=== PATIENT | female | born 1995 | race Caucasian/White ===

== ENCOUNTER → 2022-01-19 11:23 | Outpatient (CLI) | payer MEDICAID, SELFPAY ==
--- NOTE | 2022-01-19 11:23 | US_ITS ---
FINAL REPORT CLINICAL HISTORY: sga chronic hypertension FINDINGS: TRANSABDOMINAL ULTRASOUND There is a single live intrauterine gestation. Presentation is cephalic. The cervix is closed and measures 3.6 cm. Placenta is posterior, grade 2. Cardiac activity is confirmed at 133 bpm. Fetus is active. [place]: 11 cm which is low normal. MEASUREMENTS: ULTRASOUND AGE: 34 weeks 0 days. GESTATION AGE: 35 weeks 2 days. ESTIMATED WEIGHT: 2280 g GROWTH PERCENTILE: 13% LMP percentile BPD: 8.5 cm corresponding with 34 weeks 2 days. OFD: 10.9 cm corresponding with 34 weeks 6 days. HC: 30.6 cm corresponding with 34 weeks 1 days. AC: 30.1 cm corresponding to 34 weeks 1 days. FL: 6.4 cm corresponding with 33 weeks 1 days. HC/AC: 1.02 CI: 78% FL/BPD: 76% FL/AC: 21% BREATHIN/2 MOVEMENT: 2/2 TONE: 2/2 FLUID VOLUME: 2/2 BPP SCORE: 8/8 IMPRESSION: Single living IUP with an ultrasound age of 34 weeks 0 days. BPP SCORE: 8/8 [place] 11 cm, low normal. Reviewed, Interpreted and Dictated by Cyrus Brizuela III, MD Transcribed by Mary Anne Gilbert Authenticated and [facility]
== END ==
PROVIDERS: PCP Obstetrics & Gynecology; Visit Provider Obstetrics & Gynecology
DX: O36.5990 Maternal care for other known or suspected poor fetal growth, unspecified trimester, not applicable or unspecified (principal); I10 Essential (primary) hypertension
CPT/HCPCS: 76816; 76819

== ENCOUNTER 2022-01-24 11:53 | Inpatient (IN) | payer MEDICAID, SELFPAY ==
[2022-01-24] VITALS (32 sets, daily range): BP systolic 94–161; BP diastolic 50–100; PULSE 64–104; RESP 18; TEMP 36.7–36.8; O2SAT 97–100; BMI 34.9
[2022-01-24 11:18] LABS: Microscopic, Urine URINE MICROSCOPIC (MICROSCOPIC)
[2022-01-24 11:19] LABS: Basophils # 0.1 K/mm3 (0-0.2); Basophils % 0.4 % (0.1-2.0); Eosinophils # 0.1 K/mm3 (0.0-0.4); Eosinophils % 1.1 % (0.1-12.0); Hematocrit 33.4 % (37.0-47.0); Hemoglobin 11.2 g/dL (12.2-16.2); Lymphocytes # 1.9 K/mm3 (0.7-4.5); Lymphocytes % 16.2 % (10-50); Mean Corpuscular HGB Conc 33.5 g/dL (31.8-35.4); Mean Corpuscular Hemoglobin 28.9 pg (27.0-31.2); Mean Corpuscular Volume 86.3 fl (81-99); Mean Platelet Volume 9.4 fl (7.4-10.4); Monocytes # 0.6 K/mm3 (0.1-1.0); Monocytes % 4.8 % (1.7-9.3); Neutrophils # 9.1 K/mm3 (1.8-7.8); Neutrophils % 77.4 % (37.0-80.0); Platelet Count 256 K/mm3 (142-424); Red Blood Count 3.88 M/mm3 (4.20-5.40); Red Cell Distribution Width 13.4 % (11.5-17.5); White Blood Count 11.8 K/mm3 (4.8-10.8)
[2022-01-24 11:25] LABS: Appearance,Urine CLEAR (Clear); Bilirubin,Urine Negative (Negative); Blood, Urine Negative (Negative); Color,Urine YELLOW (Yellow); Glucose,Urine (UA) Negative (Negative); Ketones,Urine Negative (Negative); Leukocyte Esterase,Urine Negative (Negative); Nitrate,Urine Negative (Negative); PH,Urine 6.5 (5.0-8.5); Protein,Urine Negative (Negative); Urobilinogen,Urine 0.2 EU/dl (0.2)
[2022-01-24 11:33] LABS: Alanine Aminotransferase 18 U/L (12-78); Albumin/Globulin Ratio 1.3 (1.1-1.8); Alkaline Phosphatase 185 U/L (38-126); Anion Gap 8.8 mEq/L (5-15); Aspartate Amino Transferase 30 U/L (14-36); Bilirubin,Total 0.7 mg/dl (0.2-1.3); Blood Urea Nitrogen 5 mg/dl (7-17); Calcium 9.7 mg/dl (8.4-10.2); Carbon Dioxide 23 mmol/L (22.0-30.0); Chloride 103 mmol/L (98-107); Creatinine Clearance Estimated 236 mL/min (50-200); Estimated Glomerular Filt Rate 147 ml/min (>60); GFR (African American) 178 ML/MIN (>60); Glucose 85 mg/dl (74-100); Potassium 3.8 mmoL/L (3.5-5.1); Sodium 131 mmol/L (136-145); Uric Acid 3.5 mg/dl (2.5-6.2)
[2022-01-24 11:35] LABS: Amphetamine/Metha Screen,Urine Negative ng/ml (<1000)
[2022-01-24 11:36] LABS: Barbiturates Screen,Urine Negative ng/ml (<200)
[2022-01-24 11:37] LABS: Benzodiazepines Screen,Urine Negative ng/ml (<200); Cannabinoid Screen,Urine Negative ng/ml (<50); Squamous Epithelial Cell,Urine Occasional #/hpf (0-5)
[2022-01-24 11:38] LABS: Cocaine Screen,Urine Negative ng/ml (<300)
[2022-01-24 11:38] LABS: D-Dimer 0.99 ug/mL (0.0-0.5)
[2022-01-24 11:39] LABS: Methadone Screen,Urine Negative ng/ml (<300); Opiate Screen,Urine Negative ng/ml (<300)
[2022-01-24 11:40] LABS: Phencyclidine Screen,Urine Negative ng/ml (<25)
[2022-01-24 11:51] LABS: Activated Partial Thrombo Time 23.6 seconds (22.8-30.6); Fibrinogen 450 mg/dL (229.9-363.5); Prothrombin Time 9.8 seconds (10.1-12.5)
--- NOTE | 2022-01-24 11:56 | HMH.PHAINT1 ---
Pharmacy Intervention Comments: MEDICATION RECONCILIATION COMPLETED ON PATIENT USING EXTERNAL FILL HISTORY FROM PHARMACY. -EMELY MELGOZA, ERVIND
[2022-01-24 13:28] LABS: Coronavirus 19, PCR Not Detected (NotDetected); Influenza A, PCR Not Detected (NotDetected); Influenza B, PCR Not Detected (NotDetected)
--- NOTE | 2022-01-24 14:56 | EXP.HP ---
History of Present Illness *Admission Date: 01/24/22 *Reason for visit:: hypertension *History of present illness: 26 yo @ 36 0/7 care primarily in [place] with recent transfer of care to [facility] complicated by chronic hypertension and growth restriction Current medical management with labetalol 100mg TID but BP elevated today in office and she reports elevated BP over the weekend Sent to OB triage for further evaluation [facility] labs negative but BP remained elevated and she was advised to proceed with delivery given already compromised growth prior to loss of control of hypertension NST was reactive in office today and reassuring in triage [facility] Medical History Chronic hypertension affecting Surgical History History of laparoscopic appendectomy Family History (Updated 01/24/22 @ 11:24 by Da Lewis RN) No significant family history Social History (Updated 01/24/22 @ 11:25 by Da Lewis RN) Smoking Status: Never smoker alcohol intake: never current occupational status: employed Travel in the last 8 weeks: None Review of Systems Constitutional Constitutional: Reports system reviewed and no additional complaints, except as documented and Denies headache(s) ENT Ears, Nose, Mouth, and Throat: Denies headache(s) *Genitourinary Genitourinary: Denies abnormal vaginal bleeding *Neurologic Neurologic: Denies headache(s) and Denies other visual disturbances Meds Home Medications and Allergies Home Medications Medication Instructions Recorded Confirmed Type labetalol 100 mg tablet 100 mg PO TID Hypertension 01/17/22 01/24/22 History aspirin 81 mg tablet,delayed 81 mg PO DAILY HEART HEALTH 01/21/22 01/24/22 History release vits no.130-ferrous fum 1 tab PO DAILY Supplement 01/21/22 01/24/22 History 27 mg iron-folic acid 800 mcg tablet ( Vitamin) New Prescriptions to Start Prescriptions: Allergies Allergy/AdvReac Type Severity Reaction Status Date / Time No Known Allergies Allergy Verified 01/24/22 12:48 Exam Data for Last 24 hours Vital signs and Labs for Last 24 Hours: Temp Pulse Resp BP Pulse Ox 98.0 F 94 H 18 99/51 L 100 01/24/22 10:35 01/24/22 14:50 01/24/22 12:15 01/24/22 14:50 01/24/22 11:19 Laboratory Results - last 24 hr 01/24/22 10:30: Urine Color Yellow, Urine Appearance Clear, Urine pH 6.5, Ur Specific [place] 1.010, Urine Protein Negative, Urine Glucose (UA) Negative, Urine Ketones Negative, Urine Blood Negative, Urine Nitrate Negative, Urine Bilirubin Negative, Urine Urobilinogen 0.2, Ur Leukocyte Esterase Negative, Urine RBC None, Urine WBC None, Ur Squamous Epith Cells Occasional, Urine Bacteria None 01/24/22 10:30: Urine Opiates Screen Negative, Urine Methadone Screen Negative, Ur Barbituates Screen Negative, Ur Phencyclidine Scrn Negative, Ur Amphetamines Screen Negative, U Benzodiazepines Scrn Negative, Urine Cocaine Screen Negative, U Marijuana (THC) Screen Negative 01/24/22 11:05: WBC 11.8 H, RBC 3.88 L, Hgb 11.2 L, Hct 33.4 L, MCV 86.3, MCH 28.9, MCHC 33.5, RDW 13.4, Plt Count 256, MPV 9.4, Neut % (Auto) 77.4, Lymph % (Auto) 16.2, Todd % (Auto) 4.8, Eos % (Auto) 1.1, Baso % (Auto) 0.4, Neut # (Auto) 9.1 H, Lymph # (Auto) 1.9, Todd # (Auto) 0.6, Eos # (Auto) 0.1, Baso # (Auto) 0.1 01/24/22 11:05: PT 9.8 L, INR 0.90, APTT 23.6, Fibrinogen 450 H 01/24/22 11:05: D-Dimer 0.99 H, Sodium 131 L, Potassium 3.8, Chloride 103, Carbon Dioxide 23, Anion Gap 8.8, BUN 5 L, Creatinine 0.50 L, Estimated Creat Clear 236, Estimated GFR 147, Est GFR ( Amer) 178, Glucose 85, Uric Acid 3.5, Calcium 9.7, Total Bilirubin 0.7, AST 30, ALT 18, Alkaline Phosphatase 185 H, Total Protein 7.0, Albumin 4.0, Globulin 3.0, Albumin/Globulin Ratio 1.3 01/24/22 12:05: Blood Type O Positive, Antibody Screen Positi
[2022-01-25] VITALS (14 sets, daily range): BP systolic 122–153; BP diastolic 69–93; PULSE 64–77; RESP 18; TEMP 36.5; O2SAT 99
--- NOTE | 2022-01-25 10:38 | P.PN_ITS ---
[facility] Medical History Chronic hypertension affecting Surgical History History of laparoscopic appendectomy Family History (Updated 01/24/22 @ 11:24 by Da Lewis, RN) Other No significant family history Social History (Updated 01/24/22 @ 11:25 by Da Lewis RN) Smoking Status: Never smoker alcohol intake: never substance use type: denies use current occupational status: employed Travel in the last 8 weeks: None [facility] Anesthesia Checklist Patient Identification Patient Identification: Arm Band Structural Data Admitted From: Inpatient Planned Operative Procedure/s: Labor Epidural Consent for Planned Operative Procedure(s) Verified: Yes Verified Documents: Surgical Consent and History and Physical NPO Status Verified Time NPO: 00:00 Additional verifications Anesthesia Reactions: No Airway Assessment C-Spine Mobility Assessed: Yes TMJ Mobility Assessed: Yes Dentition: Good Dentition Neurological Assessment Level of Consciousness: Awake and Alert Anesthesia Plan Anesthesia Risk discussed: Yes Anesthesia Plan: Verified ASA Class: II Anesthesia Type: Epidural
[2022-01-25 12:11] LABS: Microscopic, Urine URINE MICROSCOPIC (MICROSCOPIC)
[2022-01-25 12:16] LABS: Appearance,Urine CLEAR (Clear); Bilirubin,Urine Negative (Negative); Blood, Urine TRACE-I (Negative); Color,Urine YELLOW (Yellow); Glucose,Urine (UA) Negative (Negative); Ketones,Urine Negative (Negative); Leukocyte Esterase,Urine Negative (Negative); Nitrate,Urine Negative (Negative); Protein,Urine Negative (Negative); Specific Gravity, Urine 1.015 (1.005-1.030); Urobilinogen,Urine 0.2 EU/dl (0.2)
[2022-01-25 12:28] LABS: Bacteria,Urine Trace /lpf; RBC,Urine Occasional #/hpf (0-3)
--- NOTE | 2022-01-25 16:52 | EXP.DN ---
Delivery Note Delivery Date:: 01/25/22 Delivery Time:: 16:04 Anesthesia Type: Epidural Was labor medically induced?: Yes Induction method: per pitocin protocol Gestational age (weeks): 36 delivered prior to 39 weeks?: Yes Justification for early elective delivery:: Benign Hypertension and IUGR Gender: Female at 1 minute: 7 at 5 minutes: 8 Delivery Procedure:: Spontaneous vaginal delivery of live born female infant over intact perineum. Delivery uncomplicated Nuchal cord x 1 reduced on perineum No shoulder dystocia with delivery taken to warmer immediately after delivery, with standard nursing assessment performed Apgars: 7 & 8 Placenta spontaneously expressed and examined; noted to be complete/intact. Vulva, vagina, and cervix inspected; small abrasion identified between urethra and clitoris, but hemostatic without needing repair EBL: 300 cc All sponge/needle/instrument counts correct at conclusion of procedure Placental Delivery Description: Spontaneous
[2022-01-26 00:20] VITALS: BP 122/76; PULSE 71; RESP 18; TEMP 36.4
[2022-01-26 05:00] VITALS: BP 132/79; PULSE 65; RESP 18; TEMP 36.5
[2022-01-26 06:25] LABS: Hematocrit 27.2 % (37.0-47.0); Hemoglobin 8.9 g/dL (12.2-16.2)
[2022-01-26 08:08] VITALS: BP 131/84; PULSE 69; RESP 17; TEMP 36.8; O2SAT 99
--- NOTE | 2022-01-26 11:25 | EXP.ACUTE.PN ---
Subjective *Date: 01/26/22 *Time: 11:25 Interval history: She is doing very well. Her blood pressure is stable on labetalol 200 mg 3 times daily. Her lochia is normal. Medical Exam Vital signs and Labs for Last 24 Hours: Vital Signs Temp Pulse Resp BP Pulse Ox 01/26/22 08:08 98.3 F 69 17 131/84 99 01/26/22 05:00 97.7 F 65 18 132/79 01/26/22 00:20 97.5 F L 71 18 122/76 01/25/22 20:47 97.7 F 68 18 148/80 H 99 01/25/22 12:00 134/75 Laboratory Results - last 24 hr 01/25/22 11:21: Urine Color Yellow, Urine Appearance Clear, Urine pH 7.0, Ur Specific [place] 1.015, Urine Protein Negative, Urine Glucose (UA) Negative, Urine Ketones Negative, Urine Blood Trace-i, Urine Nitrate Negative, Urine Bilirubin Negative, Urine Urobilinogen 0.2, Ur Leukocyte Esterase Negative, Urine RBC Occasional, Urine WBC 3-5, Ur Squamous Epith Cells 3-5, Urine Bacteria Trace 01/26/22 06:17: Hgb 8.9 L, Hct 27.2 L I & O for Labs for Last 24 Hours: Intake & Output 01/23/22 01/24/22 01/25/22 01/26/22 11:59 11:59 11:59 11:59 Weight 197 lb Head: Present atraumatic and normocephalic ENT: Present normal exam Neck: Present normal inspection Respiratory: Present normal respiratory effort Assessment and Plan *Assessment and plan (1) Normal spontaneous vaginal delivery: Status: Acute Category: Medical Code(s): O80 - Encounter for full-term uncomplicated delivery (2) Chronic hypertension affecting : Status: Acute Category: Medical Code(s): O10.919 - Unspecified pre-existing hypertension complicating , unspecified trimester Plan She is doing very well. Her blood pressure is stable. We will plan to keep her until at least tomorrow.
[2022-01-26 12:24] VITALS: BP 134/85
--- NOTE | 2022-01-26 16:09 | EXP.DC.SUM ---
General Admission date:: 01/24/22 Discharge date: 01/26/22 HPI HPI HPI: 26 yo @ 36 0/7 care primarily in [place] with recent transfer of care to [facility] complicated by chronic hypertension and growth restriction Current medical management with labetalol 100mg TID but BP elevated today in office and she reports elevated BP over the weekend Sent to OB triage for further evaluation [facility] labs negative but BP remained elevated and she was advised to proceed with delivery given already compromised growth prior to loss of control of hypertension NST was reactive in office today and reassuring in triage Hospital Course Hospital Course Hospital Course: She was started on IV oxytocin and progressed to full dilation. She delivered spontaneously a liveborn female child at 4:04 PM in the afternoon of January 25, 2022. The baby had Apgars of 7 at 1 minute and 8 at 5 minutes. The baby weighed 5 pounds 9 ounces. She is otherwise done well and has remained afebrile throughout her hospitalization. She was started on labetalol 200 mg 3 times daily and this seems to have settled her blood pressure. The blood pressures are in the 130s over 80s range. She will be discharged home to follow-up with Dr. Seals in approximately 48 hours time. She will continue with her labetalol 200 mg 3 times daily. She will continue with her vitamins and iron. She was given the usual instructions with respect to limiting her activity, driving and sexual activity. Her condition on discharge is stable and improved. She is being discharged a day early because her baby is being transferred for breathing difficulties. Exam Data for Last 24 hours Vital signs and Labs for Last 24 Hours: Temp Pulse Resp BP Pulse Ox 98.3 F 69 17 134/85 99 01/26/22 08:08 01/26/22 08:08 01/26/22 08:08 01/26/22 12:24 01/26/22 08:08 Laboratory Results - last 24 hr 01/26/22 06:17: Hgb 8.9 L, Hct 27.2 L I & O for Last 24 hours: Intake & Output 01/24/22 01/25/22 01/26/22 01/27/22 11:59 11:59 11:59 11:59 Weight 197 lb Constitutional Constitutional: no acute distress *Routine HEENT Exam Head: Present normocephalic *Routine Respiratory Exam Respiratory: Present normal respiratory effort Results Data Completed and Pending Labs on day of discharge: Labs from last 24 hours 01/26/22 06:17 Hgb 8.9 L Hct 27.2 L DS: Diagnosis Discharge Diagnosis (1) Normal spontaneous vaginal delivery: Status: Acute (2) Chronic hypertension affecting : Status: Acute Meds Home Medications and Allergies Home Medications Medication Instructions Recorded Confirmed Type labetalol 100 mg tablet 100 mg PO TID Hypertension 01/17/22 01/24/22 History aspirin 81 mg tablet,delayed 81 mg PO DAILY HEART HEALTH 01/21/22 01/24/22 History release vits no.130-ferrous fum 1 tab PO DAILY Supplement 01/21/22 01/24/22 History 27 mg iron-folic acid 800 mcg tablet ( Vitamin) labetalol 100 mg tablet 200 mg PO TID #90 tabs 01/26/22 Rx labetalol 200 mg tablet 200 mg PO TID #90 tabs 01/26/22 Rx New Prescriptions to Start Prescriptions: baljinderetalJoshua Mortensen labetalol Joshua Kramer Allergies Allergy/AdvReac Type Severity Reaction Status Date / Time No Known Allergies Allergy Verified 01/24/22 12:48 Discharge Plan Disposition Patient Disposition: Home, Self-Care Discharge Order Discharge Orders: Discharge Order (Routine); Ordered 01/26/22 Ordered By: Joshua Kramer Follow up Plan Follow up with: Radha Seals MD [Staff Physician] - 01/28/22 11:30 am Prescriptions/Medication Reconciliation: New labetalol 100 mg Tablet 200 mg PO TID Qty: 90 0RF labetalol 200 mg tablet 200 mg PO TID Qty: 90 1RF Continued labetalol 100 mg tablet 100 mg PO TID Vitamin 27 m
== END 2022-01-26 17:15 | disposition home or self-care (01) | DRG 806 ==
LOC: OBOUT 11:54 → OB 11:54
PROVIDERS: Admitting Provider Obstetrics & Gynecology; PCP Nurse Practitioner Family; Visit Provider Obstetrics & Gynecology
DX: O36.5930 Maternal care for other known or suspected poor fetal growth, third trimester, not applicable or unspecified (principal); O10.02 Pre-existing essential hypertension complicating childbirth; Z37.0 Single live birth; Z3A.36 36 weeks gestation of pregnancy
CPT/HCPCS: 59409; 36415; 59025; 80048; 80053; 80305; 81001; 84450; 84460; 84550; 85014; 85018; 85025; 85378; 85384; 85610; 85730; 86850; 86870; C1758; C9803; J0290; U0003; U0005

== ENCOUNTER → 2022-01-24 17:08 | Outpatient (CLI) | payer MEDICAID, SELFPAY | PROVIDERS: Visit Provider Obstetrics & Gynecology | DX: Z34.90 Encounter for supervision of normal pregnancy, unspecified, unspecified trimester (principal) | CPT/HCPCS: 86403 ==

== ENCOUNTER → 2022-11-17 12:00 | Outpatient (CLI) | payer MEDICAID, SELFPAY | PROVIDERS: PCP Nurse Practitioner Obstetrics & Gynecology; Visit Provider Nurse Practitioner Obstetrics & Gynecology | DX: Z34.92 Encounter for supervision of normal pregnancy, unspecified, second trimester (principal); Z3A.17 17 weeks gestation of pregnancy | CPT/HCPCS: 87086 ==

== ENCOUNTER → 2022-12-01 13:12 | Outpatient (CLI) | payer MEDICAID, SELFPAY ==
--- NOTE | 2022-12-01 13:49 | US_ITS ---
PROCEDURE: US OB /MATERNAL DETAIL CLINICAL INDICATION: 20 week anatomy scan COMPARISON: No ultrasounds are available for comparison. FINDINGS: Transabdominal sonographic images of the uterus were obtained. From her established due date she is 19 weeks 4 days. Single viable intrauterine gestation. Breech position. Change to cephalic by end of exam. Placenta: Anteriorplacenta grade 1. There is an average amount fluid. The cervix appears satisfactory. Closed and measuring 3.5 cm in length. Complete survey performed and was unremarkable on the submitted images as in PACS. No discrete anomalies identified on survey imaging by technologist. Active fetus. Three-vessel cord with satisfactory umbilical cord insertion. 4- chamber heart noted. Situs, aortic arch, RVOT, LVOT appear normal. Survey of brain & ventricles Unremarkable. Thalamus, cerebellum, cisterna magna, choroid plexus appear normal. Face and neck survey unremarkable. Profile, nasion, lips and nose appeared normal. Diaphragm and chest views unremarkable. Abdomen: Both kidneys noted and unremarkable. Stomach and bladder noted and satisfactory. Spine: Survey of the spine satisfactory with no anomalies identified nor imaged. Both arms and legs noted. Amniotic Fluid: Adequate. Measurements: Average ultrasound age 19weeks 5days. Estimated due date by ultrasound age 0204/22/2023. Estimated weight 311g BPD = 19weeks 6days OFD = 20weeks 3days HC = 19weeks 3days AC = 20weeks 2days FL = 19weeks 2days Growth Percentile= 55 Heart Rate = 143bpm Cerebellum = 19weeks 5days Humerus = 19weeks 4days HC/AC is 1.12 CI is 0.76 FL/BPD is 0.66 FL/AC is 0.2 IMPRESSION: 1. Viable fetus in a variable presentation. Placenta is anterior grade 1. 2. Anatomical scan appears normal. 3. Size and dates are congruent. Dictated by: Joshua Kramer MD 12/03/2022 08:30 Joshua Kramer MD in [place] 12/03/2022 08:30
== END ==
PROVIDERS: Visit Provider Nurse Practitioner Obstetrics & Gynecology
DX: Z34.92 Encounter for supervision of normal pregnancy, unspecified, second trimester (principal); Z3A.20 20 weeks gestation of pregnancy
CPT/HCPCS: 76811

== ENCOUNTER → 2023-02-06 12:02 | Outpatient (CLI) | payer MEDICAID, SELFPAY ==
[2023-02-06 12:50] LABS: Glucose,Fasting 98 mg/dl (74-100)
[2023-02-06 14:17] LABS: Glucose 1 Hour 135 mg/dL (74-100)
== END ==
PROVIDERS: Visit Provider Nurse Practitioner Obstetrics & Gynecology
DX: Z34.93 Encounter for supervision of normal pregnancy, unspecified, third trimester (principal); Z3A.29 29 weeks gestation of pregnancy
CPT/HCPCS: 82951

== ENCOUNTER → 2023-02-15 08:25 | Outpatient (CLI) | payer MEDICAID, SELFPAY ==
[2023-02-15 08:44] LABS: Basophils % 0.2 % (0.1-2.0); Eosinophils # 0.2 K/mm3 (0.0-0.4); Eosinophils % 2.1 % (0.1-12.0); Hematocrit 34.5 % (37.0-47.0); Hemoglobin 11.7 g/dL (12.2-16.2); Lymphocytes # 2.6 K/mm3 (0.7-4.5); Lymphocytes % 22.8 % (10-50); Mean Corpuscular HGB Conc 33.9 g/dL (31.8-35.4); Mean Corpuscular Hemoglobin 29.3 pg (27.0-31.2); Mean Corpuscular Volume 86.4 fl (81-99); Mean Platelet Volume 8.7 fl (7.4-10.4); Monocytes # 0.5 K/mm3 (0.1-1.0); Monocytes % 4.2 % (1.7-9.3); Neutrophils % 70.6 % (37.0-80.0); Platelet Count 226 K/mm3 (142-424); Red Cell Distribution Width 13.6 % (11.5-17.5); White Blood Count 11.4 K/mm3 (4.8-10.8)
[2023-02-15 08:54] LABS: Glucose,Fasting 100 mg/dl (74-100)
[2023-02-15 10:34] LABS: Glucose 1 Hour 164 mg/dL (74-100)
[2023-02-15 11:13] LABS: Glucose 2 Hour 88 mg/dL (74-100)
[2023-02-15 12:23] LABS: Glucose 3 Hour 98 mg/dL (74-100)
== END ==
PROVIDERS: Nurse Practitioner Obstetrics & Gynecology; Visit Provider Obstetrics & Gynecology
DX: Z34.93 Encounter for supervision of normal pregnancy, unspecified, third trimester (principal); Z3A.30 30 weeks gestation of pregnancy
CPT/HCPCS: 36415; 82951; 85025

== ENCOUNTER → 2023-02-24 09:48 | Outpatient (CLI) | payer MEDICAID, SELFPAY ==
--- NOTE | 2023-02-24 09:52 | US_ITS ---
PROCEDURE: US OB BIOPHYSICAL PROFILE CLINICAL INDICATION: LGA and Chronic Hypertension COMPARISON: FINDINGS: Transabdominal sonographic images of the uterus were obtained. From her established due date she is 31weeks 5days. The following parameters are obtained: Viable fetus in the cephalic presentation with an anterior placenta grade 2 Average ultrasound age is 32weeks 3days. Estimated due date by ultrasound is 04/18/2023. Estimated weight is 4lb 2oz, 1886 grams. Cervical length is 3.4 cm. BPD: 33weeks 2days OFD: 33weeks 2days HC: 33 weeks 2 days AC: 32 weeks 3 days FL: 31 weeks 0 days HC/AC: 1.06 Cephalic index: 0.78 FL/BPD: 0.72 FL/AC: 0.21 Percentile 49 Amniotic fluid index: 10.43cm ,MVP 4.8 cm. Qualitative AFV: 2 breathing movements: 2 Gross body movements: 2 Tone: 2 Biophysical profile score: 8 No obvious anomalies evident.Kidneys, profile, nasion, stomach, three-vessel cord appear normal. IMPRESSION: 1. Viable fetus in the cephalic presentation with an anterior placenta grade 2. 2. Fluid is within normal limits with an amniotic fluid index of 10.43 cm, MVP 4.8 cm. 3. Biophysical profile 8/8 with good breathing movement seen. 4. There has been good interval growth with the fetus currently weighing 4 pounds 2 ounces, 49th percentile. Dictated by: Joshua Kramer MD 02/24/2023 13:34 Joshua Kramer MD in [place] 02/24/2023 13:34
== END ==
PROVIDERS: PCP Obstetrics & Gynecology; Visit Provider Obstetrics & Gynecology
DX: O36.63X0 Maternal care for excessive fetal growth, third trimester, not applicable or unspecified (principal); Z3A.32 32 weeks gestation of pregnancy; I10 Essential (primary) hypertension
CPT/HCPCS: 76816; 76819

== ENCOUNTER → 2023-03-10 09:06 | Outpatient (CLI) | payer MEDICAID, SELFPAY ==
--- NOTE | 2023-03-10 09:09 | US_ITS ---
PROCEDURE: US OB BIOPHYSICAL PROFILE CLINICAL INDICATION: chronic hypertension COMPARISON: Ultrasound 02/24/2023, 03/02/2023 FINDINGS: Transabdominal sonographic images of the uterus were obtained. From her established due date she is 34weeks 3days. The following parameters are obtained: Viable fetus in the cephalic presentation with an anterior placenta grade 2 Average ultrasound age is 34weeks 4days. Estimated due date by ultrasound is 04/17/2023. Estimated weight is 5lb 4oz, 2388 grams. Cervix measures 3.8 cm. heart rate: 143bpm bpm. BPD: 34 weeks 6 days HC: 34 weeks 5 days AC: 34 weeks 1 day FL: 34 weeks 2 days HC/AC: 1.03 FL/BPD: 0.77 FL/AC: 0.22 40Percentile Amniotic fluid index: 10.54cm, MVP 3.7 cm. Qualitative AFV: 2 breathing movements: 2 Gross body movements: 2 Tone: 2 Biophysical profile score: 8 No obvious anomalies evident.Kidneys, profile, nasion, stomach, four-chamber view, three-vessel cord appear normal. IMPRESSION: 1. Viable fetus in the cephalic presentation with an anterior placenta grade 2. 2. The fluid is within normal limits with an amniotic fluid index of 10.54 cm, MVP 3.7 cm. 3. Biophysical profile 10/25 with good breathing movement seen. 4. There has been good interval growth with the fetus currently 40th percentile. Dictated by: Joshua Kramer MD 03/12/2023 10:32 Joshua Kramer MD in [place] 03/12/2023 10:32
== END ==
LOC: RAD 09:06
PROVIDERS: PCP Obstetrics & Gynecology; Visit Provider Obstetrics & Gynecology
DX: I10 Essential (primary) hypertension (principal); O36.63X0 Maternal care for excessive fetal growth, third trimester, not applicable or unspecified; Z3A.34 34 weeks gestation of pregnancy
CPT/HCPCS: 76816; 76819

== ENCOUNTER → 2023-03-15 23:17 | Outpatient (CLI) | payer MEDICAID, SELFPAY | LOC: LAB.DROPOF 23:17 | PROVIDERS: PCP Obstetrics & Gynecology; Visit Provider Obstetrics & Gynecology | DX: Z34.93 Encounter for supervision of normal pregnancy, unspecified, third trimester (principal); Z3A.35 35 weeks gestation of pregnancy | CPT/HCPCS: 86403 ==

== ENCOUNTER 2023-03-17 08:31 | Outpatient (CLI) | payer MEDICAID, SELFPAY ==
[2023-03-17 09:09] VITALS: BMI 36.8
[2023-03-17 09:19] VITALS: BP 139/86; PULSE 81; RESP 18; TEMP 36.5; O2SAT 100; BMI 36.8
== END 2023-03-17 09:28 | disposition home or self-care (01) ==
LOC: OBOUT 08:32 → OB 08:33
PROVIDERS: Nurse Practitioner Obstetrics & Gynecology; Visit Provider Obstetrics & Gynecology
DX: O26.893 Other specified pregnancy related conditions, third trimester (principal); Z3A.35 35 weeks gestation of pregnancy
CPT/HCPCS: 59025; G0463

== ENCOUNTER 2023-03-21 11:11 | Outpatient (CLI) | payer MEDICAID, SELFPAY ==
[2023-03-21 11:15] VITALS: BP 112/74; PULSE 84; RESP 18; TEMP 36.5; O2SAT 100; BMI 36.8
[2023-03-21] MEDS: BETAMETHASONE ACET/PHOS 6MG/ML 5ML MDV 12 MG IM (11:25)
== END 2023-03-21 11:30 | disposition home or self-care (01) ==
LOC: OBOUT 11:12 → OB 11:14
PROVIDERS: Visit Provider Obstetrics & Gynecology
DX: O26.893 Other specified pregnancy related conditions, third trimester (principal); Z3A.36 36 weeks gestation of pregnancy
CPT/HCPCS: 96372; G0463

== ENCOUNTER 2023-03-22 09:59 | Outpatient (CLI) | payer MEDICAID, SELFPAY ==
[2023-03-22 10:05] VITALS: BP 120/70; PULSE 97; RESP 16; TEMP 36.6; O2SAT 98; BMI 36.8
[2023-03-22] MEDS: BETAMETHASONE ACET/PHOS 6MG/ML 5ML MDV 12 MG IM (11:00)
== END 2023-03-22 11:05 | disposition home or self-care (01) ==
LOC: OBOUT 10:02 → OB 10:03
PROVIDERS: Visit Provider Obstetrics & Gynecology
DX: O26.893 Other specified pregnancy related conditions, third trimester (principal); Z3A.36 36 weeks gestation of pregnancy
CPT/HCPCS: 59025; 96372; G0463

== ENCOUNTER 2023-03-24 09:26 | Outpatient (CLI) | payer MEDICAID, SELFPAY ==
--- NOTE | 2023-03-24 09:32 | US_ITS ---
PROCEDURE: US OB BIOPHYSICAL PROFILE CLINICAL INDICATION: chronic hypertension COMPARISON: Ultrasound 02/24/2023 FINDINGS: Transabdominal sonographic images of the uterus were obtained. From her established due date she is 36weeks 3days. The following parameters are obtained: Viable fetus in the cephalic presentation with an anterior placenta grade 2 Average ultrasound age is 36weeks 0 days. Estimated due date by ultrasound is 04/21/2023. Estimated weight is 6lb 2oz, 2800 grams. Cervix measures 3.3 cm. heart rate: 140bpm BPD: 35 weeks 4 days HC: 36 weeks 2 days AC: 35 weeks 6 days FL: 36 weeks 1 day HC/AC: 1.01 FL/BPD: 0.8 FL/AC: 0.22 39Percentile Amniotic fluid index: 7.17cm, MVP 3.4 cm. Qualitative AFV: 2 breathing movements: 2 Gross body movements: 2 Tone: 2 Biophysical profile score: 8 No obvious anomalies evident.Kidneys, bladder, stomach, four-chamber heart, three-vessel cord appear normal. IMPRESSION: 1. Viable fetus in the cephalic presentation with an anterior placenta grade 2. 2. The fluid is within normal limits with an amniotic fluid index of 7.17 cm, MVP 3.4 cm. 3. There has been good interval growth with the fetus currently 39th percentile. 4. Biophysical profile 10/25 with good breathing movement seen and good movement seen. Dictated by: Joshua Kramer MD 03/25/2023 14:19 Joshua Kramer MD in [place] 03/25/2023 14:19
== END 2023-03-24 23:59 ==
LOC: RAD 09:27
PROVIDERS: Visit Provider Obstetrics & Gynecology
DX: O16.3 Unspecified maternal hypertension, third trimester (principal); Z3A.37 37 weeks gestation of pregnancy
CPT/HCPCS: 76816; 76819

== ENCOUNTER 2023-03-28 10:16 | Inpatient (IN) | payer MEDICAID, SELFPAY ==
--- NOTE | 2023-03-28 09:43 | US_ITS ---
PROCEDURE: US OB FOLLOW UP CLINICAL INDICATION: Check [place] COMPARISON: US US OB BIOPHYSICAL PROFILE from 03/24/2023 FINDINGS: Transabdominal sonographic images of the pelvis were obtained. The following parameters are obtained: From her established due date she is 37weeks Viable fetus in the cephalic presentation with a posterior placenta grade 1. The cervix measures heart rate: 140bpm bpm. BPD: OFD: HC: AC: FL: HC/AC: Cephalic index: FL/BPD: FL/AC: Growth percentile Amniotic fluid index: 4.38cm No obvious anomalies evident. profile seen, stomach, bladder, kidneys, three-vessel cord, four chamber heart appear normal. IMPRESSION: Dictated by: Joshua Kramer MD 03/28/2023 14:43 Joshua Kramer MD in [place] 03/28/2023 14:43
--- NOTE | 2023-03-28 10:33 | HMH.PHAINT1 ---
Pharmacy Intervention Comments: MEDICATION RECONCILIATION COMPLETED ON PATIENT USING EXTERNAL FILL HISTORY FROM PHARMACY. -EMELY MELGOZA, ERVIND
[2023-03-28 10:55] VITALS: BMI 36.8
[2023-03-28] MEDS: miSOPROStol 100MCG TABLET 25 MCG VG ×2 (11:25→16:00)
[2023-03-28] MEDS: LACTATED RINGERS 1000ML 1,000 ML 500 ML IV ×2 (11:30→18:54)
[2023-03-28] MEDS: DEXTROSE 5%-LACTATED RINGERS 1,000 ML 125 ML IV ×2 (11:31→18:54)
[2023-03-28 11:40] LABS: Basophils % 0.4 % (0.1-2.0); Eosinophils # 0.1 K/mm3 (0.0-0.4); Eosinophils % 0.5 % (0.1-12.0); Hematocrit 33.1 % (37.0-47.0); Hemoglobin 11.7 g/dL (12.2-16.2); Lymphocytes # 2.4 K/mm3 (0.7-4.5); Lymphocytes % 21.9 % (10-50); Mean Corpuscular HGB Conc 35.5 g/dL (31.8-35.4); Mean Corpuscular Volume 84.4 fl (81-99); Mean Platelet Volume 10.1 fl (7.4-10.4); Monocytes # 0.7 K/mm3 (0.1-1.0); Monocytes % 6.4 % (1.7-9.3); Neutrophils # 7.9 K/mm3 (1.8-7.8); Neutrophils % 70.8 % (37.0-80.0); Platelet Count 232 K/mm3 (142-424); Red Blood Count 3.92 M/mm3 (4.20-5.40); Red Cell Distribution Width 13.8 % (11.5-17.5); White Blood Count 11.2 K/mm3 (4.8-10.8)
[2023-03-28 11:54] LABS: Amphetamine/Metha Screen,Urine Negative ng/ml (<1000); Barbiturates Screen,Urine Negative ng/ml (<200); Benzodiazepines Screen,Urine Negative ng/ml (<200); Cannabinoid Screen,Urine Negative ng/ml (<50); Cocaine Screen,Urine Negative ng/ml (<300); Methadone Screen,Urine Negative ng/ml (<300); Opiate Screen,Urine Negative ng/ml (<300); Phencyclidine Screen,Urine Negative ng/ml (<25)
[2023-03-28 12:00] VITALS: BP 134/77; PULSE 91; RESP 18; TEMP 36.8; O2SAT 99; BMI 36.8
[2023-03-28] MEDS: LABETALOL 100MG TABLET 200 MG PO ×2 (13:39→21:27)
--- NOTE | 2023-03-28 15:52 | PC.NURSE ---
new medication order faxed to pharmacy per Faby Lara RN. pt updated on POC.
[2023-03-28 15:59] LABS: Chloride 106 mmol/L (98-107); Potassium 3.7 mmoL/L (3.5-5.1); Sodium 137 mmol/L (136-145)
[2023-03-28 16:02] LABS: Alanine Aminotransferase 26 U/L (12-78); Albumin Level 3.4 g/dl (3.5-5.0); Albumin/Globulin Ratio 1.2 (1.1-1.8); Alkaline Phosphatase 166 U/L (38-126); Anion Gap 13.7 mEq/L (5-15); Aspartate Amino Transferase 30 U/L (14-36); Bilirubin,Total 0.6 mg/dl (0.2-1.3); Blood Urea Nitrogen 7 mg/dl (7-17); Carbon Dioxide 21 mmol/L (22.0-30.0); Creatinine Clearance Estimated 309 mL/min (50-200); Estimated Glomerular Filt Rate 189 ml/min (>60); GFR (African American) 228 ML/MIN (>60); Globulin 2.8 g/dL (1.3-3.2); Total Protein,Serum 6.2 g/dl (6.3-8.2)
[2023-03-28 16:03] LABS: Calcium 8.8 mg/dl (8.4-10.2); Glucose 63 mg/dl (74-100)
--- NOTE | 2023-03-28 16:24 | P.HP_ITS ---
History of Present Illness *Admission Date: 03/28/23 *Reason for visit:: induction *History of present illness: Isis is a 27-year-old G4, P3 who presented to my office today for routine OB appointment. Her has been complicated by chronic hypertension, anti-D antibody, and obesity. Her hypertension has been controlled with nifedipine 30 mg XR once daily and labetalol 200 mg 3 times daily. On arrival today she had a reactive NST however her CHEYENNE was low she was sent to radiology for an official CHEYENNE which was 4 and decision was made to proceed with induction secondary to oligohydramnios patient denies any gushes or leakage of fluid. Denies any vaginal bleeding. Endorses good movement. Blood pressure has been well- controlled in the office for the last 4 visits. O+, antibody positive: Anti-c. GBS negative Hepatitis B negative, hepatitis C negative, rubella nonimmune, RPR negative, HIV negative (reviewed labs from [facility]) [facility] Disclaimer: The information contained in this section may have been updated after the patient was seen, as this information can be updated by other users. Medical History Abnormal antibody titer Chronic hypertension Surgical History History of laparoscopic appendectomy Family History Other No significant family history Social History Smoking Status: Never smoker alcohol intake: never substance use type: denies use current occupational status: unemployed Travel in the last 8 weeks: None Review of Systems Review of Systems Review of systems (narrative): Review of Systems Constitutional: Denies fever, chills, and sweats Eyes: Denies vision change/ pain Respiratory: Denies cough and shortness of breath Cardiovascular: Denies chest pain and lightheadedness Gastrointestinal: Admits abdominal pain with contractions. Denies nausea, vomiting. Genitourinary: Denies dysuria and incontinence Musculoskeletal: Denies shoulder pain and back pain Neurological: Denies change in speech or headaches Meds Home Medications and Allergies Home Medications Medication Instructions Recorded Confirmed Type aspirin 81 mg tablet,delayed 81 mg PO DAILY 11/17/22 03/28/23 History release (Adult Aspirin Regimen) vits no.126-ferrous fum 1 tab PO DAILY Supplement 11/17/22 03/28/23 History 28 mg iron-folic acid 800 mcg tablet (Classic ) labetalol 200 mg tablet 200 mg PO TID High Blood Pressure 02/06/23 03/28/23 History nifedipine 30 mg tablet,extended 30 mg PO DAILY High Blood Pressure 02/06/23 03/28/23 History release 24 hr famotidine 40 mg tablet 40 mg PO DAILY Acid Reflux 03/28/23 03/28/23 History ferrous sulfate 325 mg (65 mg 325 mg PO DAILY Supplement 03/28/23 03/28/23 History iron) tablet calcium carbonate 200 mg calcium 500 mg PO BID Supplement 03/29/23 03/29/23 History (500 mg) chewable tablet New Prescriptions to Start Prescriptions: Allergies Allergy/AdvReac Type Severity Reaction Status Date / Time No Known Allergies Allergy Verified 03/28/23 08:25 Exam Data for Last 24 hours Vital signs and Labs for Last 24 Hours: Temp Pulse Resp BP Pulse Ox O2 Del Method 98.2 F 91 H 18 134/77 99 Room Air 03/28/23 12:00 03/28/23 12:00 03/28/23 12:00 03/28/23 12:00 03/28/23 12:00 03/28/23 12:00 Laboratory Results - last 24 hr 03/28/23 11:05: WBC 11.2 H, RBC 3.92 L, Hgb 11.7 L, Hct 33.1 L, MCV 84.4, MCH 30.0, MCHC 35.5 H, RDW 13.8, Plt Count 232, MPV 10.1, Neut % (Auto) 70.8, Lymph % (Auto) 21.9, Dickens % (Auto) 6.4, Eos % (Auto) 0.5, Baso % (Auto) 0.4, Neut # (Auto) 7.9 H, Lymph # (Auto) 2.4, Dickens # (Auto) 0.7, Eos # (Auto) 0.1, Baso # (Auto) 0.0, Sodium 137, Potassium 3.7, Chloride 106, Carbon Dioxide 21 L, Anion Gap 13.7, BUN 7, Creatinine 0.40 L, Estimated Creat Clear 309 H, Estimated GFR 189, Est GFR ( Amer) 228, Glucose 63 L, Calcium 8.8, Total Bilirubin 0.6, AST 30, ALT 26, Alkaline Phosphatase 166 H, Total Protein 6.2 L, Albumin 3.4 L, Globulin 2.8, Albumin/Globulin Ratio 1.2, Blood Type O Positive, Antibody Screen Positive 03/28/23 11:12: Urine Opiates Screen Negative, Urine Methadone Screen Negative, Ur Barbituates Screen Negative, Ur Phencyclidine Scrn Negative, Ur Amphetamines Screen Negative, U Benzodiazepines Scrn Negative, Urine Cocaine Screen Negative, U Marijuana (THC) Screen Negative I & O for Last 24 hours: Intake & Output 03/25/23 03/26/23 03/27/23 03/28/23 23:59 23:59 23:59 23:59 Weight 208 lb Narrative: General: patient is alert oriented in no acute distress and responds appropriately to questions. HEENT: NCAT, EOMI, moist mucous membranes, neck supple with full ROM Cardiovascular: RRR +S1/S2, no murmurs or rubs Pulmonary: Clear to auscultation bilaterally, nonlabored breathing, symmetric chest rise Abdominal: Gravid abdomen appropriate for gestation. No guarding, rebound, or tenderness noted. SVE: 3/60/-3 Extremities: trace edema, no tenderness or cyanosis noted Skin: Normal turgor, intact, warm. Negative for erythema, pallor, petechia, or lesions Neurologic: Negative for sensory or motor deficit Psychiatric: Normal affect, normal thought process, good judgment and insight, no depression or anxious mood appreciated. *Routine HEENT Exam Head: Present normocephalic and atraumatic Eye: Present EOMI, PERRL and normal accommodation; Absent conjunctival icterus, scleral injection, nystagmus or exophthalmos ENT: Present mucous membranes moist *Routine Respiratory Exam Respiratory: Present CTA bilaterally, normal respiratory effort, able to speak in complete sentences and symmetric chest movement; Absent accessory muscle use, decreased breath sounds, rales, respiratory distress, wheezes, distant breath sounds or diminished air movement *Routine Cardiovascular Exam Cardiovascular: Present RRR, Normal S1 and Normal S2; Absent murmur or gallop *Routine Abdominal Exam Abdominal: Present soft and normoactive bowel sounds; Absent tenderness, distended, rebound or guarding *Routine Rectal Exam Rectal:: deferred *Routine Genitalia Exam Genitalia:: normal female Assessment and Plan *Assessment and plan (1) 37 weeks gestation of : Status: Acute Category: Medical Code(s): Z3A.37 - 37 weeks gestation of (2) Obesity (BMI 35.0-39.9 without comorbidity): Status: Acute Category: Medical Code(s): E66.9 - Obesity, unspecified (3) History of induced hypertension: Status: Acute Category: Medical Code(s): Z87.59 - Personal history of other complications of , childbirth and the puerperium (4) Anxiety and depression: Status: Acute Category: Medical Code(s): F41.9 - Anxiety disorder, unspecified; F32.A - Depression, unspecified (5) Chronic hypertension: Status: Acute Category: Medical Code(s): I10 - Essential (primary) hypertension (6) Abnormal antibody titer: Problem Comment: Anti-C antibody Too low to titer Status: Acute Category: Medical Code(s): R76.0 - Raised antibody titer (7) Oligohydramnios in third trimester: Status: Acute Qualifiers: Fetus number: single or unspecified fetus Qualified Code(s): O41.03X0 - Oligohydramnios, third trimester, not applicable or unspecified Category: Medical Code(s): O41.03X0 - Oligohydramnios, third trimester, not applicable or unspecified (8) Encounter for induction of labor: Status: Acute Category: Medical Code(s): Z34.90 - Encounter for supervision of normal , unspecified, unspecified trimester Plan #37 weeks #Oligohydramnios #Medically indicated induction of labor - Monitor vitals - Admit to L&D for induction of labor - Plan for induction with 25mcg of vaginal cytotec [id number] per protocol. DC Cytotec with contractions, patient received pain, for cervical change. Do not start Pitocin protocol until has been at least 4 hours since last dose of Cytotec - External FHR and TOCO monitor - GBS-/ Blood type: O+ - Hemoglobin: 11.7, Plt: 232 - Plan for epidural - Anticipate vaginal delivery of Male : aJyro #Obesity -Complicates all aspects of care #Chronic hypertension -Continue labetalol 200 mg 3 times daily -Continue nifedipine 30 mg XR once daily -Obtain PIH labs on admission -Follow blood pressure closely throughout labor #Abnormal antibody titer -Anti-c antibody has been followed and seen by MFM to low to titer
[2023-03-28 16:45] LABS: Uric Acid 3.6 mg/dl (2.5-6.2)
--- NOTE | 2023-03-28 19:02 | P.PNANES_ITS ---
[facility] Disclaimer: The information contained in this section may have been updated after the patient was seen, as this information can be updated by other users. Medical History Abnormal antibody titer Chronic hypertension Surgical History History of laparoscopic appendectomy Family History Other No significant family history Social History Smoking Status: Never smoker alcohol intake: never substance use type: denies use current occupational status: unemployed Travel in the last 8 weeks: None [facility] Anesthesia Checklist Patient Identification Patient Identification: Arm Band and Verbal (Name & ) Structural Data Admitted From: Inpatient Planned Operative Procedure/s: Labor epidural Consent for Planned Operative Procedure(s) Verified: Yes NPO Status Verified Time NPO: 18:00 Chart Verification Results Verified: CBC Additional verifications Anesthesia Reactions: No Airway Assessment Mallampati Score:: Class II C-Spine Mobility Assessed: Yes TMJ Mobility Assessed: Yes Dentition: Good Dentition Neurological Assessment Level of Consciousness: Awake Hx Seizures: No Numbness or tingling in extremities: No Anesthesia Plan Anesthesia Risk discussed: Yes Anesthesia Plan: Verified ASA Class: II Anesthesia Type: Epidural
[2023-03-28] MEDS: OXYTOCIN/RINGERS LACTATE 30 UNITS/500 ML BAG 999 UNITS IV (20:15)
[2023-03-28] MEDS: TRANEXAMIC ACID 1,000 MG in 0.9 % SODIUM CHLORIDE 250 ML 500 MG IV (20:20)
--- NOTE | 2023-03-28 20:29 | EXP.DN ---
Delivery Note Delivery Date:: 03/28/23 Delivery Time:: 08:08 Anesthesia Type: Epidural Was labor medically induced?: Yes Induction method: per misoprostol protocol Gestational age (weeks): 37 Infant delivered prior to 39 weeks?: Yes Justification for early elective delivery:: Oligohydraminos Gender: Male at 1 minute: 5 (2 Color, 2 tone, 1cry) at 5 minutes: 8 (1color, 1tone ) Delivery Procedure:: Preoperative diagnosis: 1. at 37 completed this weeks gestation, vertex 2. Rh positive 3. GBS negative 4. Chronic Hypertension 5. Oligohydramnios 6. Obesity 7. Anti-c Antibody 8. Rubella Non immune Postoperative diagnosis: 1. at 37 completed this weeks gestation, vertex 2. Rh positive 3. GBS negative 4. Chronic Hypertension 5. Oligohydramnios 6. Obesity 7. Anti-c Antibody 8. Rubella Non immune EBL: 350mL Specimen: 1. Cord blood 2. Arterial and venous cord gasses 3. Placenta Findings: 1. Liveborn viable male infant: Jayro. Apgars 5/8 at 1 and 5 minutes respectively. Weight pending at time of dictation Complications: Placental Abruption Procedure: Nonoperative spontaneous delivery Isis Seals is a 27-year-old G4, P3 who presented today for routine OB visit and was noted to have oligohydramnios. She was sent to labor and delivery for induction. She was given Cytotec for cervical ripening. She received 2 doses of Cytotec and tolerated that well. Patient had spontaneous rupture of membranes revealing bloody fluid around 7pm. She received an epidural for anesthesia. She progressed to complete very rapidly. At approximately 7 PM when she was set up for her epidural a large amount of bleeding was noted and it was suspected that her water had broken at that time. Increased bleeding as well as uterine tachysystole was noted. At this time I discussed with the patient that I suspected she may be having a placental abruption. We discussed the pathogenesis as well as the management for this. The was tolerating this well. There were occasional variable decelerations which recovered to baseline in the face of moderate variability. At 1938 the patient was noted to be complete and her bladder was drained and she was placed in dorsal lithotomy for delivery. At 2004 a second bag was noted an artificially ruptured revealing clear fluid. The was noted to be in RUBÉN position. With effective maternal pushing there was a nonoperative spontaneous vaginal delivery at 2007. There was no a nuchal cord. The anterior right shoulder delivered, followed by the posterior shoulder without dystocia. The body and lower extremities delivered without difficulty. The infant was bulb suctioned following delivery. The was placed on the maternal abdomen, stimulated and suctioned. Greater than one minute was appreciated for delayed cord clamping. The umbilical cord was doubly clamped and cut. Cord blood was collected and sent for routine testing. Arterial and venous cord gases were collected. The placenta delivered rapidly with cord traction and suprapubic contertraction. Pitocin was started and the placenta and cord were inspected. The placenta was noted to have an area suspicious for abruption in the middle with a 3 vessel cord. The uterus was firm however there was still bleeding noted vaginally. TXA was ordered. A thorough vaginal, cervical, and perineal inspection revealed no bleeding lacerations. There was a small abrasion at the midline vaginal mucosa that was hemostatic and did not require repair. The bleeding has now stopped. Uterus is firm and 1 below the umbilicus. This concluded the delivery. The patient was counseled regarding the events of the delivery and suspected placental abruption. The patient tolerated the delivery well. All counts were correct by nursing. Mother and infant were doing well and bonding upon my leaving the delivery room. Placental Delivery Description: Spontaneous
[2023-03-28] MEDS: OXYTOCIN/RINGERS LACTATE 30 UNITS/500 ML BAG 40 UNITS IV (20:30)
[2023-03-28 20:37] LABS: Cord Blood PH 7.26 (7.35-7.45)
[2023-03-28] MEDS: ACETAMINOPHEN 500MG TAB 1000 MG PO (23:19)
[2023-03-28] MEDS: IBUPROFEN 400 MG TABLET 800 MG PO (23:19)
[2023-03-29] MEDS: BENZOCAINE-MENTHOL SPRAY 56GM CAN TP (02:48)
[2023-03-29] MEDS: ACETAMINOPHEN 500MG TAB 1000 MG PO (04:33)
[2023-03-29 05:38] LABS: Basophils % 0.2 % (0.1-2.0); Eosinophils # 0.1 K/mm3 (0.0-0.4); Eosinophils % 0.4 % (0.1-12.0); Hematocrit 29.4 % (37.0-47.0); Lymphocytes # 2.8 K/mm3 (0.7-4.5); Lymphocytes % 19.5 % (10-50); Mean Corpuscular Hemoglobin 29.4 pg (27.0-31.2); Mean Corpuscular Volume 86.5 fl (81-99); Mean Platelet Volume 9.9 fl (7.4-10.4); Monocytes # 0.8 K/mm3 (0.1-1.0); Monocytes % 5.4 % (1.7-9.3); Neutrophils # 10.5 K/mm3 (1.8-7.8); Neutrophils % 74.4 % (37.0-80.0); Platelet Count 200 K/mm3 (142-424); Red Cell Distribution Width 13.9 % (11.5-17.5); White Blood Count 14.1 K/mm3 (4.8-10.8)
[2023-03-29] MEDS: IBUPROFEN 400 MG TABLET 800 MG PO (06:32)
[2023-03-29] MEDS: LABETALOL 100MG TABLET 200 MG PO ×3 (08:31→21:07)
[2023-03-29] MEDS: CALCIUM CARBONATE 500MG CHEWTAB 500 MG PO (08:31)
[2023-03-29] MEDS: FAMOTIDINE 20MG TABLET 40 MG PO (08:31)
[2023-03-29] MEDS: NIFEdipine XL 30MG TABLET 30 MG PO (08:31)
--- NOTE | 2023-03-29 16:30 | EXP.DC.SUM ---
General Admission date:: 03/28/23 Discharge date: 03/29/23 HPI HPI HPI: Isis is a 27-year-old G4, P3 who presented to my office today for routine OB appointment. Her has been complicated by chronic hypertension, anti-D antibody, and obesity. Her hypertension has been controlled with nifedipine 30 mg XR once daily and labetalol 200 mg 3 times daily. On arrival today she had a reactive NST however her CHEYENNE was low she was sent to radiology for an official CHEYENNE which was 4 and decision was made to proceed with induction secondary to oligohydramnios patient denies any gushes or leakage of fluid. Denies any vaginal bleeding. Endorses good movement. Blood pressure has been well-controlled in the office for the last 4 visits. O+, antibody positive: Anti-c. GBS negative Hepatitis B negative, hepatitis C negative, rubella nonimmune, RPR negative, HIV negative (reviewed labs from [facility]) Hospital Course Hospital Course Hospital Course: Faiza Seals is a 27yo G4, P4 day 1 from a normal spontaneous vaginal delivery over intact perineum at 37 weeks gestation secondary to chronic hypertension and oligohydramnios. She was medically induced using Cytotec x 2 doses. Her delivery was complicated by a suspected placental abruption. heart tones remained appropriate and labor was progressing well. This morning the patient reports that her bleeding is scant. She is tolerating p.o. without nausea or vomiting. She is ambulating without difficulty. She is voiding without dysuria. She desires discharge home today. All questions and concerns were addressed. Routine discharge is reviewed with patient in detail and she was understanding. Exam Data for Last 24 hours Vital signs and Labs for Last 24 Hours: Temp Pulse Resp BP Pulse Ox O2 Del Method 98.2 F 91 H 18 134/77 99 Room Air 03/28/23 12:00 03/28/23 12:00 03/28/23 12:00 03/28/23 12:00 03/28/23 12:00 03/28/23 12:00 Laboratory Results - last 24 hr 03/28/23 11:05: Uric Acid 3.6, Blood Type O Positive, Antibody Screen Positive, Antibody Identification Anti-c, Crossmatch ([facility]) See Detail 03/28/23 11:12: Urine Opiates Screen Negative, Urine Methadone Screen Negative, Ur Barbituates Screen Negative, Ur Phencyclidine Scrn Negative, Ur Amphetamines Screen Negative, U Benzodiazepines Scrn Negative, Urine Cocaine Screen Negative, U Marijuana (THC) Screen Negative 03/28/23 20:30: Cord ABG pH 7.40 03/28/23 20:33: Cord ABG pH 7.26 L 03/29/23 05:18: WBC 14.1 H D, RBC 3.40 L, Hgb 10.0 L D, Hct 29.4 L, MCV 86.5, MCH 29.4, MCHC 34.0, RDW 13.9, Plt Count 200, MPV 9.9, Neut % (Auto) 74.4, Lymph % (Auto) 19.5, [place] % (Auto) 5.4, Eos % (Auto) 0.4, Baso % (Auto) 0.2, Neut # (Auto) 10.5 H, Lymph # (Auto) 2.8, [place] # (Auto) 0.8, Eos # (Auto) 0.1, Baso # (Auto) 0.0 I & O for Last 24 hours: Intake & Output 03/26/23 03/27/23 03/28/23 03/29/23 23:59 23:59 23:59 23:59 Weight 208 lb Narrative: General: patient is alert oriented in no acute distress and responds appropriately to questions. Appears to be in minimal pain. Sitting up in the chair and doing well HEENT: NCAT, EOMI, moist mucous membranes, neck supple with full ROM Cardiovascular: RRR +S1/S2, no murmurs or rubs Pulmonary: Clear to auscultation bilaterally, nonlabored breathing, symmetric chest rise Abdominal: Fundus below the umbilicus, firm, and tenderness appropriate for the period. Extremities: trace edema, no tenderness or cyanosis noted Skin: Normal turgor, intact, warm. Negative for erythema, pallor, petechia, or lesions Neurologic: Negative for sensory or motor deficit Psychiatric: Normal affect, normal thought process, good judgment and insight, no depression or anxious mood appreciated. Results Data Completed and Pending Labs on day of discharge: Labs from last 24 hours 03/29/23 03/28/23 03/28/23 05:18 20:33 20:30 WBC 14.1 H D RBC 3.40 L Hgb 10.0 L D Hct 29.4 L MCV 86.5 MCH 29.4 MCHC 34.0 RDW 13.9 Plt Count 200 MPV 9.9 Neut % (Auto) 74.4 Lymph % (Auto) 19.5 Prairie % (Auto) 5.4 Eos % (Auto) 0.4 Baso % (Auto) 0.2 Neut # (Auto) 10.5 H Lymph # (Auto) 2.8 Prairie # (Auto) 0.8 Eos # (Auto) 0.1 Baso # (Auto) 0.0 Cord ABG pH 7.26 L 7.40 Uric Acid Urine Opiates Screen Urine Methadone Screen Ur Barbituates Screen Ur Phencyclidine Scrn Ur Amphetamines Screen U Benzodiazepines Scrn Urine Cocaine Screen U Marijuana (THC) Screen Blood Type Antibody Screen Antibody Identification Crossmatch ([facility]) 03/28/23 03/28/23 11:12 11:05 WBC RBC Hgb Hct MCV MCH MCHC RDW Plt Count MPV Neut % (Auto) Lymph % (Auto) [place]irie % (Auto) Eos % (Auto) Baso % (Auto) Neut # (Auto) Lymph # (Auto) [place] # (Auto) Eos # (Auto) Baso # (Auto) Cord ABG pH Uric Acid 3.6 Urine Opiates Screen Negative Urine Methadone Screen Negative Ur Barbituates Screen Negative Ur Phencyclidine Scrn Negative Ur Amphetamines Screen Negative U Benzodiazepines Scrn Negative Urine Cocaine Screen Negative U Marijuana (THC) Screen Negative Blood Type O Positive Antibody Screen Positive Antibody Identification Anti-c Crossmatch ([facility]) See Detail DS: Diagnosis Discharge Diagnosis (1) 37 weeks gestation of : Status: Acute Code(s): Z3A.37 - 37 weeks gestation of (2) Obesity (BMI 35.0-39.9 without comorbidity): Status: Acute Code(s): E66.9 - Obesity, unspecified (3) History of induced hypertension: Status: Acute Code(s): Z87.59 - Personal history of other complications of , childbirth and the puerperium (4) Anxiety and depression: Status: Acute Code(s): F41.9 - Anxiety disorder, unspecified; F32.A - Depression, unspecified (5) Chronic hypertension: Status: Acute Code(s): I10 - Essential (primary) hypertension (6) Abnormal antibody titer: Status: Acute Code(s): R76.0 - Raised antibody titer Problem details: Anti-C antibody Too low to titer (7) Oligohydramnios in third trimester: Status: Acute Code(s): O41.03X0 - Oligohydramnios, third trimester, not applicable or unspecified Qualifiers: Fetus number: single or unspecified fetus Qualified Code(s): O41.03X0 - Oligohydramnios, third trimester, not applicable or unspecified (8) Encounter for induction of labor: Status: Acute Code(s): Z34.90 - Encounter for supervision of normal , unspecified, unspecified trimester Problem details: #37 weeks #Oligohydramnios #Medically indicated induction of labor # -Stable. PPD#1 s/p -Doing well. VSS. Serial lochia and fundal checks. -O+/antibody negative -Breast feeding, male infant -Contraception: Undecided -Follow-up 2 weeks for routine visit #Anemia -Hemoglobin: 10.1--> 8.6 - asymptomatic anemia noted. Vitals stable. Continue monitoring. DC with Fe -EBL: 800mL -IV Iron ordered for this morning -Continue PO at discharge home, discussed with pt #Rubella non-immune -[employer] and vaccinate prior to discharge -Dispo: home today pending mother/infant status #Obesity -Complicates all aspects of care #Chronic hypertension -Continue labetalol 200 mg 3 times daily -Continue nifedipine 30 mg XR once daily -Follow blood pressure closely #Abnormal antibody titer -Anti-c antibody has been followed and seen by MFM to low to titer Meds Home Medications and Allergies Home Medications Medication Instructions Recorded Confirmed Type vits no.126-ferrous fum 1 tab PO DAILY Supplement 11/17/22 03/28/23 History 28 mg iron-folic acid 800 mcg tablet (Classic ) labetalol 200 mg tablet 200 mg PO TID High Blood Pressure 02/06/23 03/28/23 History nifedipine 30 mg tablet,extended 30 mg PO DAILY High Blood Pressure 02/06/23 03/28/23 History release 24 hr famotidine 40 mg tablet 40 mg PO DAILY Acid Reflux 03/28/23 03/28/23 History ferrous sulfate 325 mg (65 mg 325 mg PO DAILY Supplement 03/28/23 03/28/23 History iron) tablet calcium carbonate 200 mg calcium 500 mg PO BID Supplement 03/29/23 03/29/23 History (500 mg) chewable tablet ferrous sulfate 325 mg (65 mg 325 mg PO DAILY #30 tabs 03/29/23 Rx iron) tablet,delayed release ibuprofen 800 mg tablet 800 mg PO Q8H PRN pain #60 tabs 03/29/23 Rx sennosides 8.6 mg tablet (Senna 8.6 mg PO BIDP PRN Constipation 03/29/23 Rx Lax) #60 tabs New Prescriptions to Start Prescriptions: ferrous sulfate Sonja Goetz ibuprofen Sonja Goetz sennosides [Senna Lax] Sonja Goetz Allergies Allergy/AdvReac Type Severity Reaction Status Date / Time No Known Allergies Allergy Verified 03/28/23 08:25 Discharge Plan Disposition Patient Disposition: Home, Self-Care Condition: Good Discharge Order Discharge Orders: Discharge Order (Routine); Ordered 03/29/23 Ordered By: Sonja Goetz Follow up Plan Follow up with: Sonja Goetz DO [Primary Care Provider] - 04/11/23 11:00 am Prescriptions/Medication Reconciliation: New sennosides [Senna Lax] 8.6 mg Tablet 8.6 mg PO BIDP PRN (Reason: Constipation) Qty: 60 2RF ibuprofen 800 mg tablet 800 mg PO Q8H PRN (Reason: pain) Qty: 60 2RF ferrous sulfate 325 mg (65 mg iron) tablet,delayed release (DR/EC) 325 mg PO DAILY Qty: 30 3RF Continued Classic 28 mg iron- 800 mcg tablet 1 tab PO DAILY nifedipine 30 mg tablet extended release 24hr 30 mg PO DAILY labetalol 200 mg tablet 200 mg PO TID famotidine 40 mg tablet 40 mg PO DAILY ferrous sulfate 325 mg (65 mg iron) tablet 325 mg PO DAILY calcium carbonate 200 mg calcium (500 mg) tablet,chewable 500 mg PO BID Discontinued aspirin [Adult Aspirin Regimen] 81 mg tablet,delayed release (DR/EC) 81 mg PO DAILY Problem Reconciliation Problems Reviewed?: Yes Patient Discharge Instructions ACTIVITY: Continue current activity and Limited activity DIET: continue same diet and regular diet Additional Instructions: Congratulations on the delivery of your sweet baby boy. It is my privilege to be your doctor and I am so thankful I could be a part of your special day. Discharge: 1. Take 800 mg Ibuprofen every 8 hours as needed for pain. You can also take 500-1000 mg of Tylenol in between doses, every 6-8 hours. 2. Iron supplements can make you constipated. Colace can be taken 1-2 times per day as you need. You can take iron tablets every other day if constipation is too bad. 3. Nothing in the vagina for 6 weeks - no sex, douching, tampons. No tub baths 4. Do not lift greater than 15 pounds for 6 weeks, this is the equivalent of 2 gallons of milk. 5. Reasons to return to L&D or call On-Call doctor - fever (greater than 100.4) - heavy vaginal bleeding (soaking through 1 pad in less than 2 hours or passing clots that are egg sized) - vaginal discharge (malodorous and/or purulent) - severe headaches, leg tenderness/edema, or any other symptoms that warrant immediate medical attention. 6. depression/blues - Normal to feel anxious/overwhelmed for first 2 weeks - Talk to your doctor if: anxiety lasts over 2 weeks, trouble bonding with baby, withdrawing from other family members, thoughts of harming yourself or others Blood pressure and preeclampsia instructions 1. Please take your blood pressure twice daily. 2. Please call if greater than 2 values are higher than: 150 systolic (the top number) or 100 diastolic (the bottom number). 3. Please go to the emergency room or labor and delivery triage if any value is higher than: 160 systolic (the top number) or 110 diastolic (the bottom number). 4. Please call if unrelenting headache (does not go away with rest or Tylenol or ibuprofen), changes in vision (spots, floaters, flashes of light), chest pain, shortness of breath, or right upper quadrant (liver) abdominal pain. Sonja Goetz DO [facility] [phone] *Nothing in the Vagina for 6 weeks* *No strenuous activity* *No heavy lifting* *No tub baths until okay's by MD* Patient Instructions: Depression, Hemorrhage, DI for Labor and Delivery, Vaginal , DI for Pre-eclampsia Providers Primary Care Provider: Sonja Goetz Admit Provider: Sonja Goetz Attending Provider: Sonja Goetz
[2023-03-30 10:47] LABS: Creatinine,Urine Random 150 mg/dL (Not Estab.)
[2023-03-30 11:00] LABS: Microalbumin/Creatinine Ratio 23.8
[2023-03-30 11:03] LABS: Microscopic, Urine URINE MICROSCOPIC (MICROSCOPIC)
[2023-03-30 11:18] LABS: Appearance,Urine CLEAR (Clear); Bilirubin,Urine Negative (Negative); Blood, Urine Negative (Negative); Color,Urine YELLOW (Yellow); Glucose,Urine (UA) Negative (Negative); Ketones,Urine Negative (Negative); Leukocyte Esterase,Urine Negative (Negative); Nitrate,Urine Negative (Negative); Protein,Urine TRACE (Negative); Specific Gravity, Urine >= 1.030 (1.005-1.030); Urobilinogen,Urine 0.2 EU/dl (0.2)
[2023-03-30 11:33] LABS: Bacteria,Urine 2+ /lpf; Calcium Oxalate Crystals,Urine 1+ /lpf; RBC,Urine Occasional #/hpf (0-3); Squamous Epithelial Cell,Urine 20-50 #/hpf (0-5)
== END 2023-03-29 22:06 | disposition home or self-care (01) | DRG 805 ==
LOC: OB 10:16
PROVIDERS: Admitting Provider Obstetrics & Gynecology; PCP Obstetrics & Gynecology; Visit Provider Obstetrics & Gynecology
DX: O10.92 Unspecified pre-existing hypertension complicating childbirth (principal); O45.93 Premature separation of placenta, unspecified, third trimester; Z37.0 Single live birth; O99.214 Obesity complicating childbirth; Z3A.37 37 weeks gestation of pregnancy; O90.81 Anemia of the puerperium
CPT/HCPCS: 59409; 36415; 59025; 76816; 80053; 80307; 81001; 82043; 82570; 82800; 84550; 85025; 86850; 86870; 87086; 88307; 94761; G0283